=== PATIENT | female | born 1995 | race African-American/Black ===

== ENCOUNTER 2024-11-24 11:56 | Emergency (ER) | payer MEDICAID ==
[~2024-11-24] VITALS: Ht 170.2 cm; Wt 130.0 kg
[2024-11-24 12:01] VITALS: O2SAT 99
[2024-11-24] MEDS: IBUPROFEN 800MG TABLET PO ONE (14:15)
[2024-11-24] MEDS ORDERED: IBUP-2030 MT (14:33)
[2024-11-24 14:55] VITALS: BP 118/76; PULSE 55; RESP 16; TEMP 36.7; O2SAT 100
== END 2024-11-24 14:56 | disposition home or self-care (01) ==
LOC: ER 11:56
DX: M25.512 Pain in left shoulder (principal); E78.00 Pure hypercholesterolemia, unspecified; J45.909 Unspecified asthma, uncomplicated; I10 Essential (primary) hypertension; Z98.890 Other specified postprocedural states
CPT/HCPCS: 73030; 73070; 99284; A4565